=== PATIENT | female | born 1995 | race Caucasian/White ===

== ENCOUNTER → 2019-05-23 | Outpatient (REF) | payer OTHER | LOC: M LAB LCGH 17:24 | DX: D22.5 Melanocytic nevi of trunk (principal) ==

== ENCOUNTER → 2023-05-24 | Outpatient (REF) | payer OTHER ==
[2023-05-24 17:04] LABS: C REACTIVE PROTEIN QUANTITATIV < 0.40 MG/DL (<1.0)
[2023-05-24 17:05] LABS: COMPLEMENT C3 156.4 MG/DL (82.0-160.0); COMPLEMENT C4 40.1 MG/DL (12-36)
[2023-05-24 17:06] LABS: APPEARANCE, URINE CLEAR (CLEAR); BACTERIA, URINE AUTO 1+ (NEGATIVE); BILIRUBIN, URINE AUTO NEGATIVE (NEGATIVE); BLOOD, URINE BLOOD NEGATIVE (NEGATIVE); COLOR, URINE STRAW (YELLOW); GLUCOSE, URINE (UA) AUTO NEGATIVE (NEGATIVE); KETONE, URINE AUTO NEGATIVE (NEGATIVE); LEUKOCYTE ESTERASE, URINE AUTO NEGATIVE (NEGATIVE); NITRITE, URINE AUTO NEGATIVE (NEGATIVE); PROTEIN, URINE AUTO NEGATIVE (NEGATIVE); RBC, URINE AUTO 0 /HPF (0-3); SPECIFIC GRAVITY URINE AUTO 1.005 (1.002-1.035); SQUAMOUS EPITHELIAL CELL UR AU 1 /HPF (0-6); UROBILINOGEN, URINE AUTO 0.2 mg/dL (0.0-2.0); WBC, URINE AUTO 0 /HPF (0-3)
[2023-05-24 17:23] LABS: BASO % 0.4 % (0.0-1.0); EOS # 0.1 10^3/uL (0.0-0.5); HEMATOCRIT 40.7 % (36.0-47.0); HEMOGLOBIN 13.2 g/dl (12.0-15.5); LYMPH # 1.9 10^3/uL (1.5-5.0); MEAN CORPUSCULAR HEMOGLOBIN 28.7 pg (27.0-33.0); MEAN CORPUSCULAR HGB CONC 32.4 g/dl (32.0-36.5); MEAN CORPUSCULAR VOLUME 88.5 fl (80.0-96.0); MONO # 0.5 10^3/uL (0.0-0.8); NEUTROPHILS # 5.3 10^3/uL (1.5-8.5); NEUTROPHILS % 68.2 % (36.0-66.0); PLATELET COUNT, AUTOMATED 294 10^3/uL (150-450); WHITE BLOOD COUNT 7.8 10^3/uL (4.0-10.0)
[2023-05-24 17:24] LABS: CREATININE,RANDOM URINE 21.7 MG/DL
[2023-05-24 17:30] LABS: TOTAL PROTEIN,RANDOM URINE < 6.0 MG/DL (0.0-14.0)
[2023-05-24 18:40] LABS: ERYTHROCYTE SEDIMENTATION RATE 20 mm/hr (0-20)
[2023-05-25 10:09] LABS: DRVV SCREEN 42.5 SEC
[2023-05-25 10:29] LABS: PTT LUPUS TYPE ANTICOAG SCREEN 1.1 (0-1.2)
[2023-05-31 16:10] LABS: COMPLEMENT TOTAL (CH50) > 60 U/mL (>41); HLA-B27 Negative (.)
== END ==
LOC: M SFHCRHEU 12:11
PROVIDERS: ATTEND Internal Medicine
DX: M25.48 Effusion, other site (principal); R76.8 Other specified abnormal immunological findings in serum

== ENCOUNTER → 2024-03-22 | Outpatient (REF) | payer OTHER ==
[2024-03-22 17:39] LABS: ALBUMIN 3.9 G/DL (3.2-5.2); ALKALINE PHOSPHATASE 73 U/L (46-116); ALT/SGPT 41 U/L (7.0-40); AST/SGOT 21 U/L (<34); BILIRUBIN,DIRECT 0.1 MG/DL (<0.4); BILIRUBIN,TOTAL 0.4 MG/DL (0.3-1.2); BLOOD UREA NITROGEN 9 MG/DL (9-23); CALCIUM LEVEL 9.6 MG/DL (8.5-10.1); CARBON DIOXIDE LEVEL 29 MMOL/L (20-31); CHLORIDE LEVEL 106 MMOL/L (98-107); CREATININE FOR GFR 0.78 MG/DL (0.55-1.30); GLOMERULAR FILTRATION RATE > 60.0 (>60); GLUCOSE, FASTING 83 MG/DL (60-100); POTASSIUM SERUM 4.4 MMOL/L (3.5-5.1); SODIUM LEVEL 139 MMOL/L (136-145); TOTAL PROTEIN 7.1 G/DL (5.7-8.2)
[2024-03-22 17:41] LABS: TOTAL 25(OH) VITAMIN D 21.8 NG/ML (20.0-100.0)
== END ==
LOC: M SFHCRHEU 12:24
PROVIDERS: ATTEND Internal Medicine
DX: E55.9 Vitamin D deficiency, unspecified (principal); M25.48 Effusion, other site

== ENCOUNTER → 2025-03-25 | Outpatient (REF) | payer OTHER ==
[2025-03-25 15:50] LABS: BASO % 0.5 % (0.0-1.0); EOS # 0.1 10^3/uL (0.0-0.5); EOS % 1.6 % (0.0-3.0); HEMATOCRIT 42.7 % (36.0-47.0); LYMPH # 1.9 10^3/uL (1.5-5.0); LYMPH % 25.5 % (24.0-44.0); MEAN CORPUSCULAR HGB CONC 32.8 g/dl (32.0-36.5); MEAN CORPUSCULAR VOLUME 91.4 fl (80.0-96.0); MONO # 0.4 10^3/uL (0.0-0.8); NEUTROPHILS # 5.1 10^3/uL (1.5-8.5); NEUTROPHILS % 67.1 % (36.0-66.0); PLATELET COUNT, AUTOMATED 306 10^3/uL (150-450); RED BLOOD COUNT 4.67 10^6/uL (4.00-5.40); WHITE BLOOD COUNT 7.6 10^3/uL (4.0-10.0)
[2025-03-25 16:19] LABS: PHOSPHORUS LEVEL 3.5 MG/DL (2.5-4.9)
[2025-03-25 16:20] LABS: PERCENT SATURATION 21.1 % (13.2-45.0)
[2025-03-25 16:21] LABS: FERRITIN 41.6 NG/ML (7.3-270.7); TOTAL 25(OH) VITAMIN D 34.3 NG/ML (20.0-100.0)
[2025-03-25 16:22] LABS: FOLATE 7.27 NG/ML (>5.4)
[2025-03-29 13:03] LABS: NICOTINAMIDE < 20 ng/mL (see note); NICOTINIC ACID < 20 ng/mL (see note); VITAMIN B2 (RIBOFLAVIN) 15.7 nmol/L (6.2-39.0)
[2025-03-30 16:38] LABS: VITAMIN B6,PYRIDOXAL PHOSPHATE 11.9 ng/mL (2.1-21.7)
[2025-03-31 10:53] LABS: VITAMIN C, ASCORBIC ACID < 0.1 mg/dL (0.3-2.7)
[2025-04-01 08:13] LABS: VITAMIN B1 LEVEL WHOLE BLOOD 110 nmol/L (78-185)
[2025-04-02 07:02] LABS: VITAMIN B7 (BIOTIN) 1358.6 pg/mL (221.0-3004.0)
== END ==
LOC: M SFHCRHEU 13:09
PROVIDERS: ATTEND Internal Medicine
DX: R53.83 Other fatigue (principal); M79.10 Myalgia, unspecified site

== ENCOUNTER → 2025-09-29 | Outpatient (REF) | payer OTHER ==
[2025-09-29 17:06] LABS: TOTAL 25(OH) VITAMIN D 27.4 NG/ML (20.0-100.0); VITAMIN B12 LEVEL 1389.0 PG/ML (211-911)
== END ==
LOC: M SFHCRHEU 12:04
PROVIDERS: ATTEND Internal Medicine
DX: E55.9 Vitamin D deficiency, unspecified (principal); R79.89 Other specified abnormal findings of blood chemistry